=== PATIENT | male | born 1980 | race Caucasian/White ===

== ENCOUNTER 2019-06-29 11:26 | Emergency (ER) | payer SELFPAY ==
[~2019-06-29] VITALS: Ht 167.6 cm; Wt 74.8 kg
--- NOTE | 2019-06-29 11:26 | NUR ---
Pt left in the COVID tent for COVID precautions.
[2019-06-29 11:27] VITALS: BP 145/86
--- NOTE | 2019-06-29 11:45 | NUR ---
38/M c/o flu-like symptoms x 3 days. Pt complaints of body aches, cough, chills and loss of smell and taste. Denies fever. Denies N/V/D. The patient has been taking Pedialyte to stay hydrated. Patient wearing mask during assessment. No cough present. Afebrile.
--- NOTE | 2019-06-29 11:46 | NUR ---
Flu swab and COVID swab collected and sent to lab. Pt tolerated well.
[2019-06-29 11:54] VITALS: BP 145/86
--- NOTE | 2019-06-29 11:54 | NUR ---
Patient discharged with v/s stable. Written and verbal after care instructions given and explained. Patient alert, oriented and verbalized understanding of instructions. Ambulatory with steady gait. All questions addressed prior to discharge. ID band removed. Patient advised to follow up with PMD. Rx of Ibuprofen 600mg and Promethazine Hydrochloride/Dextromethorphan Hydrobromide given. Patient educated on indication of medication including possible reaction and side effects. Opportunity to ask questions provided and answered.
--- NOTE | 2019-06-30 17:33 | NUR ---
RECEIVED POSITIVE COVID RESULT FROM LAB, PTS CHART WILL BE SENT TO INFECTIOUS DISEASES MAILBOX.
== END 2019-06-29 11:54 | disposition home or self-care (01) ==
LOC: EEVIPCON 11:26 → MED 11:26
DX: R05 Cough (principal); Z20.828 Contact with and (suspected) exposure to other viral communicable diseases; R51 Headache; M79.10 Myalgia, unspecified site
CPT/HCPCS: 87804; 99283; C9803; U0003; 36415

== ENCOUNTER 2019-10-12 10:44 | Emergency (ER) | payer SELFPAY ==
[~2019-10-12] VITALS: Ht 154.9 cm; Wt 70.3 kg
[2019-10-12 10:46] VITALS: BP 120/64
[2019-10-12 11:09] VITALS: BP 120/64
== END 2019-10-12 11:09 | disposition home or self-care (01) ==
LOC: MED 10:44
DX: K64.9 Unspecified hemorrhoids (principal)
CPT/HCPCS: 99282